=== PATIENT | female | born 1995 | race Two or more races ===

== ENCOUNTER 2017-11-14 16:41 | Emergency (ER) | payer SELFPAY ==
[2017-11-14 17:16] VITALS: BP 108/69
--- NOTE | 2017-11-14 17:36 | ER Document Report ---
ED Skin Rash/Insect Bite/Abscs - General Chief Complaint: Abscess Stated Complaint: BUMP Time Seen by Provider: 11/14/17 17:25 Mode of Arrival: Ambulatory Information source: Patient TRAVEL OUTSIDE OF THE [place] IN LAST 30 DAYS: No - HPI Patient complains to provider of: Tender/swollen area Notes: Patient is here with complaints of tender swollen area in her vaginal area for the last few days. States it seems to be getting bigger and more painful. She denies any fevers. She does report a prior history of having abscess in the past. States that this was approximately 2 years ago. She denies any nausea, vomiting, diarrhea. No abdominal pain. No dysuria or hematuria. No difficulty urinating. Pain is worse with walking and touching the area, nothing seems to make it better. The patient denies any further complaints at this time. - Related Data Allergies/Adverse Reactions: No Known Allergies Allergy (Verified 11/14/17 17:05) Past Medical History - Social History Smoking Status: Unknown if Ever Smoked Family History: Reviewed & Not Pertinent Pulmonary Medical History: Denies: Hx Asthma Neurological Medical History: Reports: Hx Migraine GI Medical History: Denies: Hx Gastritis, Hx Gastroesophageal Reflux Disease Musculoskeltal Medical History: Denies Hx Arthritis, Denies Hx Fibromyalgia, Denies Hx Muscular Dystrophy, Denies Hx Musculoskeletal Trauma Psychiatric Medical History: Denies: Hx Anxiety Past Surgical History: Reports: Hx Oral Surgery - Immunizations Immunizations up to date: Yes Hx Diphtheria, Pertussis, Tetanus Vaccination: Yes - 2011 Review of Systems - Review of Systems -: Yes All other systems reviewed and negative Physical Exam - Vital signs Vitals: Temp Pulse Resp BP Pulse Ox 97.9 F 70 14 108/69 100 11/14/17 17:15 11/14/17 17:15 11/14/17 17:15 11/14/17 17:15 11/14/17 17:15 - Notes Notes: GENERAL: alert, cooperative, nontoxic, no distress. HEAD: normocephalic, atraumatic EYES: conjunctiva pink without discharge, no external redness or swelling. EARS: no external swelling, no external redness NOSE: atraumatic, no external swelling MOUTH/THROAT: mucous membranes moist and pink, posterior pharynx without erythema, swelling, exudate. No trismus or drooling. NECK: soft, supple, full range of motion, no meningismus. CHEST: no distress, lungs clear and equal throughout. No wheezing, rales, rhonchi. CARDIAC: regular rate and rhythm, no murmur, normal capillary refill, normal pulses. No peripheral edema noted. ABDOMEN: Soft, nontender. BACK: full range of motion, no CVA tenderness. EXTREMITIES: full range of motion of all extremities. No redness, no swelling. NEURO: alert and oriented x 3, no focal deficits, full range of motion of all extremities. PYSCH: appropriate mood, affect. Patient is cooperative. SKIN: pink, warm, dry, no rash. : Performed with female accounting consultant at the bedside. Patient is noted to have a 1 cm abscess to the labia minora at the superior aspect on the left side. No significant cellulitis identified. This is tender to palpation. It does not involve the clitoris. It does not involve the urethra. Course - Re-evaluation Re-evalutation: 11/14/17 18:46 Patient is noted to have a small abscess to the left aspect of the labia minora superior aspect with no involvement of the clitoris or the urethra. Was able to drain the abscess here in the emergency department. Patient will be discharged home with a prescription for Bactrim and instructions to apply warm compresses to the sore area. She declined needing anything for pain, she states she will take Tylenol Motrin as needed. Patient is instructed to follow- up if she does not seem to be improving in the next 2 days, sooner for increasing pain, fever, redness, drainage, any further concerns. The patient's emergency department workup and current diagnosis were explained to the patient and or family. Follow-up instructions were provided. Medications if prescribed were discussed. Instructions for when to return to the emergency department including specific worrisome symptoms were discussed with the patient and/or family. - Vital Signs Vital signs: Temp Pulse Resp BP Pulse Ox 97.9 F 70 14 108/69 100 11/14/17 17:15 11/14/17 17:15 11/14/17 17:15 11/14/17 17:15 11/14/17 17:15 Procedures - Incision and Drainage Labial Type: Simple Anesthetic type: 1% Lidocaine Blade size: 11 I&D procedure: Chlorprep applied Incision Method: Incision made by scalpel Amount/type of drainage: small, purulent Notes: 11/14/17 18:47 Loculations broke up with hemostats. Abscess cavity irrigated with normal saline. Patient tolerated procedure well with no immediate complications. Discharge - Discharge Condition: Stable Disposition: HOME, SELF-CARE Instructions: Abscess ([facility]), Post Incision and Drainage, Trimethoprim-Sulfa ( [facility]) Additional Instructions: Take medications as prescribed. Apply warm compresses to sore area. Follow-up if not improving in the next 2 days, sooner for increasing pain, fever, redness , drainage, any further concerns. Prescriptions: Sulfamethoxazole/Trimethoprim [Bactrim Ds Tablet] 1 each PO BID #20 tablet Forms: Smoking Cessation Education Referrals: [facility] [Provider Group] - Follow up as needed
== END 2017-11-14 19:08 | disposition home or self-care (01) ==
LOC: ER 16:41
PROC: 0H9AXZZ Drainage of Inguinal Skin, External Approach (ICD-10-PCS; principal; 2017-11-14)
DX: N76.4 Abscess of vulva (principal); N76.0 Acute vaginitis
CPT/HCPCS: 99283

== ENCOUNTER 2018-09-27 10:13 | Emergency (ER) | payer SELFPAY ==
[2018-09-27] MEDS ORDERED: NORMAL SALINE 1000 ML 1,000 ML IV ONE (10:34)
[2018-09-27] MEDS ORDERED: ONDANSETRON HCL INJ/PF 4 MG/2 ML SDV IV ONE (10:35)
--- NOTE | 2018-09-27 10:35 | ER Document Report ---
ED General - General Chief Complaint: Nausea/Vomiting/Diarrhea Stated Complaint: THROWING UP Time Seen by Provider: 09/27/18 10:28 Primary Care Provider: [facility] [Provider Group] - Follow up as needed [facility]NO [facility]AL MD[facility] - Follow up as needed Notes: Patient is a 23-year-old female that presents to the emergency department for chief complaint of nausea, vomiting, diarrhea. Patient reports that her symptoms started last Thursday and got worse over the weekend, and she feels that she is getting dehydrated, complaining of a mild headache as well so she decided to come to the emergency department. She states that her boyfriend had similar symptoms, but his of since resolved. She is not sure that she is , her first day of last menstrual period was the third of last month. She denies any significant abdominal pain, chest pain, shortness of breath, fevers, chills, night sweats, dysuria or hematuria. She currently rates her headache as a 2 out of 10 describes as an aching sensation. Past Medical History: Denies chronic medical conditions Past Surgical History: [place] tooth extraction Social History: Admits to occasional alcohol use, denies tobacco or drug use. Family History: Reviewed and noncontributory for presenting illness Allergies: Reviewed, see documented allergy list. REVIEW OF SYSTEMS: Other than noted above, the 12 point review of systems was reviewed with the patient and were negative, all pertinent findings are included in the HPI. PHYSICAL EXAMINATION: Vital signs reviewed, nursing noted reviewed. GENERAL: Well-appearing, well-nourished and in no acute distress. HEAD: Atraumatic, normocephalic. EYES: Eyes appear normal, extraocular movements intact, sclera anicteric, conjunctiva are normal. ENT: nares patent, oropharynx clear without exudates. Moist mucous membranes. NECK: Normal range of motion, supple without lymphadenopathy LUNGS: Breath sounds clear to auscultation bilaterally and equal. No wheezes rales or rhonchi. HEART: Regular rate and rhythm without murmurs ABDOMEN: Soft, nontender, normoactive bowel sounds. No rebound, guarding, or rigidity. No masses appreciated. EXTREMITIES: Nontender, good range of motion, no pitting or edema. NEUROLOGICAL: No focal neurological deficits. Moves all extremities spontaneously Motor and sensory grossly intact on exam. PSYCH: Normal mood, normal affect. SKIN: Warm, Dry, normal turgor, no rashes or lesions noted on exposed skin TRAVEL OUTSIDE OF THE [place] IN LAST 30 DAYS: No - Related Data Allergies/Adverse Reactions: No Known Allergies Allergy (Verified 09/27/18 10:14) Past Medical History - Social History Smoking Status: Never Smoker Chew tobacco use (# tins/day): No Frequency of alcohol use: Occasional Drug Abuse: None Family History: Reviewed & Not Pertinent Patient has suicidal ideation: No Patient has homicidal ideation: No Pulmonary Medical History: Denies: Hx Asthma Neurological Medical History: Reports: Hx Migraine Renal/ Medical History: Denies: Hx Peritoneal Dialysis GI Medical History: Denies: Hx Gastritis, Hx Gastroesophageal Reflux Disease Musculoskeletal Medical History: Denies Hx Arthritis, Denies Hx Fibromyalgia, Denies Hx Muscular Dystrophy, Denies Hx Musculoskeletal Trauma Psychiatric Medical History: Denies: Hx Anxiety Past Surgical History: Reports: Hx Oral Surgery - Immunizations Immunizations up to date: Yes Hx Diphtheria, Pertussis, Tetanus Vaccination: Yes - 2011 Physical Exam - Vital signs Vitals: Temp Pulse Resp BP Pulse Ox 99.0 F 80 16 105/69 99 09/27/18 10:24 09/27/18 10:24 09/27/18 10:24 09/27/18 10:24 09/27/18 10:24 Course - Re-evaluation Re-evalutation: Patient seen and examined vital signs reviewed. Laboratory data and imaging were ordered as appropriate for the patient's presenting symptoms and complaint, with consideration of any critical or life threatening conditions that may be associated with their obtained history and exam as noted above. Patient was treated with IV fluids, dose of Zofran 4 mg IV Results were reviewed when available and demonstrated urinalysis was essentially unremarkable, hCG in the urine was positive, because the patient was complaining of some vaginal spotting, I ordered ultrasound, which confirmed an IUP, hCG was ordered as well, consistent with the patient stage of . The patient was re-evaluated and was stable and improved Evaluation was most consistent with , nausea and vomiting, advised to follow-up with FABRIC AND ACCESSORIES ESTIMATOR. Results were discussed with the patient at this point, after careful consideration I feel that that patient can be discharged from the emergency department, the patient was educated treatments and reasons to return to the e mergency department based on their presumed diagnosis as noted above, they were advised to followup with a primary care physician in 2-3 days. Patient was agreeable to plan of care. *Note is created using voice recognition software and may contain spelling, syntax or grammatical errors. Laboratory 09/27/18 09/27/18 09/27/18 11:39 11:39 14:24 Beta HCG, Quant Total Beta HCG Urine Color YELLOW Urine Appearance SLIGHTLY-CLOUDY Urine pH 5.0 Ur Specific [place] 1.027 Urine Protein 30 H Urine Glucose (UA) NEGATIVE Urine Ketones 80 H Urine Blood LARGE H Urine Nitrite NEGATIVE Urine Bilirubin NEGATIVE Urine Urobilinogen 4.0 H Ur Leukocyte Esterase NEGATIVE Urine WBC (Auto) 3 Urine RBC (Auto) 2 U Hyaline Cast (Auto) 1 Urine Bacteria (Auto) SPINNING FRAME FIXER Urine Red Cell Clumps SPINNING FRAME FIXER Urine WBC Clumps SPINNING FRAME FIXER Squamous Epi Cells Auto 1 U Non-Squamous Epis Auto SPINNING FRAME FIXER Calcium Carbonate Cryst SPINNING FRAME FIXER Calcium Phosphate Cryst SPINNING FRAME FIXER Calcium Oxalate Cr Auto SPINNING FRAME FIXER Leucine Crystals SPINNING FRAME FIXER Cystine Crystals SPINNING FRAME FIXER Uric Acid Cryst (Auto) SPINNING FRAME FIXER Triple Phos Cryst (Auto) SPINNING FRAME FIXER Tyrosine Crystals SPINNING FRAME FIXER Amorphous Sediment Auto SPINNING FRAME FIXER Cellular Casts SPINNING FRAME FIXER Epithelial Casts (Auto) SPINNING FRAME FIXER Fatty Casts SPINNING FRAME FIXER Granular Casts (Auto) SPINNING FRAME FIXER Waxy Casts (Auto) SPINNING FRAME FIXER Broad Casts SPINNING FRAME FIXER RBC Casts (Auto) SPINNING FRAME FIXER WBC Casts (Auto) SPINNING FRAME FIXER Urine Mucus (Auto) MANY U Trichomonas (Auto) SPINNING FRAME FIXER Ur Yeast w Hyphae SPINNING FRAME FIXER Urine Yeast (Budding) SPINNING FRAME FIXER Urine Ascorbic Acid NEGATIVE Urine HCG, Qual POSITIVE H Blood Type O POSITIVE Rhogam Indicated RHOGAM NOT INDICATED 09/27/18 14:24 Beta HCG, Quant 60583.00 H Total Beta HCG POSITIVE Urine Color Urine Appearance Urine pH Ur Specific [place] Urine Protein Urine Glucose (UA) Urine Ketones Urine Blood Urine Nitrite Urine Bilirubin Urine Urobilinogen Ur Leukocyte Esterase Urine WBC (Auto) Urine RBC (Auto) U Hyaline Cast (Auto) Urine Bacteria (Auto) Urine Red Cell Clumps Urine WBC Clumps Squamous Epi Cells Auto U Non-Squamous Epis Auto Calcium Carbonate Cryst Calcium Phosphate Cryst Calcium Oxalate Cr Auto Leucine Crystals Cystine Crystals Uric Acid Cryst (Auto) Triple Phos Cryst (Auto) Tyrosine Crystals Amorphous Sediment Auto Cellular Casts Epithelial Casts (Auto) Fatty Casts Granular Casts (Auto) Waxy Casts (Auto) Broad Casts RBC Casts (Auto) WBC Casts (Auto) Urine Mucus (Auto) U Trichomonas (Auto) Ur Yeast w Hyphae Urine Yeast (Budding) Urine Ascorbic Acid Urine HCG, Qual Blood Type Rhogam Indicated Obstetrics Ultrasound 09/27/18 13:20 IMPRESSION: LIVING INTRAUTERINE . EGA 5 weeks 6 days. Trimester of : First - 0 to 13 weeks. - Vital Signs Vital signs: Temp Pulse Resp BP Pulse Ox 98.6 F 77 18 119/81 100 09/27/18 16:51 09/27/18 16:51 09/27/18 16:51 09/27/18 16:51 09/27/18 16:51 - Laboratory Laboratory results interpreted by me: 09/27/18 09/27/18 09/27/18 11:39 11:39 14:24 Beta HCG, Quant 98765.00 H Urine Protein 30 H Urine Ketones 80 H Urine Blood LARGE H Urine Urobilinogen 4.0 H Urine HCG, Qual POSITIVE H Discharge - Discharge Clinical Impression: Nausea & vomiting Qualifiers: Vomiting type: unspecified Vomiting Intractability: non-intractable Qualified Code(s): R11.2 - Nausea with vomiting, unspecified Qualifiers: Weeks of gestation: less than 8 weeks Qualified Code(s): Z3A.01 - Less than 8 weeks gestation of Condition: Stable Disposition: HOME, SELF-CARE Instructions: ([facility]), Vomiting ([facility]) Additional Instructions: Please follow-up with women's health, or the health department, you should avoid alcohol going forward, you should start taking a vitamin on a daily basis, avoid cigarette smoke, even if it secondhand smoke. Referrals: [facility] [Provider Group] - [facility] as [facility] - Follow up as needed
[2018-09-27 11:56] LABS: APPEARANCE,URINE SLIGHTLY-CLOUDY; BILIRUBIN,URINE NEGATIVE (NEGATIVE); GLUCOSE, URINE NEGATIVE (NEGATIVE); KETONES,URINE 80 mg/dL (NEGATIVE); LEUKOCYTE ESTERASE,URINE NEGATIVE (NEGATIVE); NITRITE,URINE NEGATIVE (NEGATIVE); PROTEIN,URINE 30 mg/dL (NEGATIVE); URINE SPECIFIC GRAVITY 1.027
[2018-09-27 11:57] LABS: COLOR,URINE YELLOW
--- NOTE | 2018-09-27 15:48 | RADIOLOGY REPORT (SQ) ---
EXAM DESCRIPTION: U/S OB TRANSVAGINAL W/O DOP COMPLETED DATE/TIME: 09/27/2018 3:20 pm REASON FOR STUDY: vaginal bleeding, + hcg COMPARISON: None. TECHNIQUE: Transvaginal static and realtime grayscale images acquired of the pelvis. Additional maribeth cted spectral and color Doppler images recorded. All images stored on PACs. bHCG: Pending CLINICAL DATES: LMP 08/12/2018. 6 weeks 4 days. LIMITATIONS: None. FINDINGS: FETUS: Single Living intrauterine . ULTRASOUND EGA: 5 weeks 6 days ULTRASOUND LIBERTY: 05/24/2019 EFW: Not applicable less than 20 weeks. CRL: 0.25 cm FHR: 104 beats per minute. SURVEY: Too early to assess. AMNIOTIC FLUID: Adequate amount. PLACENTA: Not yet developed due to early gestation. SUBCHORIONIC BLEED: No SIZE OF BLEED: Not applicable. UTERUS: No masses. No anomalies. CERVICAL LENGTH: 3.4 cm. Closed. RIGHT ADNEXA: Normal ovary with normal vascular flow. 2.8 x 2.4 x 1.6 cm. No adnexal free fluid. No adnexal masses. LEFT ADNEXA: Normal ovary with normal vascular flow. 3.8 x 2.2 x 2.6 cm. No adnexal free fluid. No adnexal masses. FREE FLUID: None. OTHER: No other significant finding. IMPRESSION: LIVING INTRAUTERINE . EGA 5 weeks 6 days. Trimester of : First - 0 to 13 weeks. TECHNICAL DOCUMENTATION: JOB ID: [id number] [employer]- All Rights Reserved rev Reading location - IP/workstation name: [email or web address]
[2018-09-27 17:00] VITALS: BP 119/81
== END 2018-09-27 16:57 | disposition home or self-care (01) ==
LOC: ER 10:13
DX: O21.9 Vomiting of pregnancy, unspecified (principal); O26.891 Other specified pregnancy related conditions, first trimester; R19.7 Diarrhea, unspecified; O26.851 Spotting complicating pregnancy, first trimester; Z3A.01 Less than 8 weeks gestation of pregnancy
CPT/HCPCS: 99284; 96361; 96374; 86900; 86901; 36415; 87086; 84702; 81025; 81001; 76817; J2405; J7030

== ENCOUNTER 2018-11-14 08:21 | Emergency (ER) | payer MEDICAID ==
[2018-11-14] MEDS ORDERED: DIPHENHYDRAMINE HCL 50 MG/ML VIAL IV ONE (09:27)
[2018-11-14] MEDS ORDERED: ACETAMINOPHEN 325 MG TABLET PO ONE (09:28)
[2018-11-14] MEDS ORDERED: NORMAL SALINE 1000 ML 1,000 ML IV ONE (09:28)
--- NOTE | 2018-11-14 09:33 | ER Document Report ---
ED Headache - General Chief Complaint: Headache Stated Complaint: HEADACHE Time Seen by Provider: 11/14/18 09:16 Mode of Arrival: Ambulatory Information source: Patient Notes: Patient is a 23-year-old female comes to the emergency room today complaining of migraine headache times 1 week. Patient has a history of migraine headaches and states she usually gets 1 or 2 a week but takes Tylenol and it goes away. She is been recently diagnosed as being on September 10 and was found to be here at this hospital. This is her first and since the started she has had vomiting along with these headaches which have been increasing. These headaches and the presentation are similar to all her past history of headaches is just not going away with the Tylenol. States the headache is frontal and causes photophobia. Also causes nausea and vomiting. She denies any abdominal pain cramping or bleeding. She denies smoking she works currently as a information clerk cashier at the [employer]. She denies any other medical history. TRAVEL OUTSIDE OF THE [place] IN LAST 30 DAYS: No - HPI Patient complains to provider of: Headache, "Migraine" Patient reports: Frequent migraines, Hx chronic headaches Onset: Last week Onset was: Abrupt - Works for [employer] final viewing over 5 Timing: Worse Quality of pain: Achy, Sharp, Throbbing Severity: Severe Pain Level: 5 Preceding symptoms: Other - Photophobia Associated symptoms: Nausea/vomiting. denies: Motor/sensory loss to leg, Neck pain Exacerbated by: Light, Noise, Movement Similar symptoms previously: Yes Recently seen / treated by doctor: No - Related Data Allergies/Adverse Reactions: No Known Allergies Allergy (Verified 09/27/18 10:14) Past Medical History - General Information source: Patient - Social History Smoking Status: Never Smoker Chew tobacco use (# tins/day): No Frequency of alcohol use: None Drug Abuse: None Lives with: Family Family History: Reviewed & Not Pertinent Patient has suicidal ideation: No Patient has homicidal ideation: No Pulmonary Medical History: Denies: Hx Asthma Neurological Medical History: Reports: Hx Migraine Renal/ Medical History: Denies: Hx Peritoneal Dialysis GI Medical History: Denies: Hx Gastritis, Hx Gastroesophageal Reflux Disease Musculoskeletal Medical History: Denies Hx Arthritis, Denies Hx Fibromyalgia, Denies Hx Muscular Dystrophy, Denies Hx Musculoskeletal Trauma Psychiatric Medical History: Denies: Hx Anxiety Past Surgical History: Reports: Hx Oral Surgery - wisdom teeth removed - Immunizations Immunizations up to date: Yes Hx Diphtheria, Pertussis, Tetanus Vaccination: Yes - 2011 Review of Systems - Review of Systems Constitutional: No symptoms reported EENT: No symptoms reported Cardiovascular: No symptoms reported Respiratory: No symptoms reported Gastrointestinal: No symptoms reported Genitourinary: No symptoms reported Female Genitourinary: No symptoms reported, Musculoskeletal: No symptoms reported Skin: No symptoms reported Hematologic/Lymphatic: No symptoms reported Neurological/Psychological: No symptoms reported, Headaches -: Yes All other systems reviewed and negative Physical Exam - Vital signs Vitals: Temp Pulse Resp BP Pulse Ox 98.0 F 90 16 109/64 99 11/14/18 08:26 11/14/18 08:26 11/14/18 08:26 11/14/18 08:26 11/14/18 08:26 Interpretation: Normal - Notes Notes: PHYSICAL EXAMINATION: GENERAL: Well-appearing, well-nourished and in no acute distress. But uncomfortable appearing. HEAD: Atraumatic, normocephalic. EYES: Pupils equal round and reactive to light, extraocular movements intact, conjunctiva are normal. ENT: Nares patent, oropharynx clear without exudates. Moist mucous membranes. NECK: Normal range of motion, supple without lymphadenopathy LUNGS: Breath sounds clear to auscultation bilaterally and equal. No wheezes rales or rhonchi. HEART: Regular rate and rhythm without murmurs ABDOMEN: Soft, nontender, nondistended abdomen. No guarding, no rebound. No masses appreciated. Female : deferred Musculoskeletal: Normal range of motion, no pitting or edema. No cyanosis. NEUROLOGICAL: Cranial nerves grossly intact. Normal speech, normal gait. Normal sensory, motor exams PSYCH: Normal mood, normal affect. SKIN: Warm, Dry, normal turgor, no rashes or lesions noted. Course - Re-evaluation Re-evalutation: 11/14/18 09:35 Patient has a history of migraine headaches normally responding to Tylenol however since her starting around September she is been having increasing migraine headaches that are more difficult to handle. This wound is been ongoing on for a week and she is attempted Tylenol multiple times but her pain is getting worse her headache is similar to all of her other ones in the past intensity is approximately the same issues not responding to medication. At this time we will try a liter of fluid some Benadryl and Tylenol p.o. since last though she took was late yesterday evening around 11 PM. We will continue to monitor and adjust treatment as needed. Patient received a liter of fluids and the Benadryl and her pain came down to a 2 out of 10 she slept most of the morning and feels better. We will discharge patient home with the intent that she can take Benadryl every 6 hours as she needed for relief of the headache. She can go home and sleep. 11/14/18 12:09 - Vital Signs Vital signs: Temp Pulse Resp BP Pulse Ox 98.0 F 90 16 109/64 99 11/14/18 08:26 11/14/18 08:26 11/14/18 08:26 11/14/18 08:26 11/14/18 08:26 Discharge - Discharge Clinical Impression: Migraine headache Qualifiers: Migraine type: without aura Status migrainosus presence: with status migrainosus Intractability: not intractable Qualified Code(s): G43.001 - Migraine without aura, not intractable, with status migrainosus Qualifiers: Weeks of gestation: 12 weeks Qualified Code(s): Z3A.12 - 12 weeks gestation of Condition: Good Disposition: HOME, SELF-CARE Instructions: Antinausea Medication ([facility]), Use of Diphenhydramine, Headache ([facility]), ([facility]) Additional Instructions: Home and rest. Continue with fluids as much as possible for the next 24 hours. Advance her diet as tolerated. I am giving you something for your nausea which may also will subside with your . Continue her Tylenol every 8 hours as needed for the headache. Return to ER if you have any concerns or problems. Highly suggest follow-up with a neurologist at your convenience. 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 Continue with your vitamins. Prescriptions: Promethazine HCl [Phenergan 25 mg Tablet] 1 - 2 tab PO Q6H PRN #20 tablet PRN Reason:
[2018-11-14 12:36] VITALS: BP 103/61
== END 2018-11-14 12:57 | disposition home or self-care (01) ==
LOC: ER 08:21
DX: G43.001 Migraine without aura, not intractable, with status migrainosus (principal); R11.2 Nausea with vomiting, unspecified; H53.149 Visual discomfort, unspecified
CPT/HCPCS: 99283; 96361; 96374; J3490; J1200; J7030

== ENCOUNTER 2019-02-13 19:26 | Outpatient (CLI) | payer MEDICAID ==
[2019-02-13 20:53] LABS: AMORPHOUS SEDIMENT,URINE TRACE /HPF
[2019-02-13 20:56] LABS: APPEARANCE,URINE CLOUDY; BILIRUBIN,URINE NEGATIVE (NEGATIVE); COLOR,URINE YELLOW; GLUCOSE, URINE NEGATIVE (NEGATIVE); KETONES,URINE NEGATIVE (NEGATIVE); LEUKOCYTE ESTERASE,URINE NEGATIVE (NEGATIVE); NITRITE,URINE NEGATIVE (NEGATIVE); PROTEIN,URINE NEGATIVE (NEGATIVE); URINE SPECIFIC GRAVITY 1.017; UROBILINOGEN,URINE NEGATIVE mg/dL (<2.0)
[2019-02-13 20:57] LABS: URINE AMPHETAMINES SCREEN NEGATIVE; URINE BARBITURATES SCREEN NEGATIVE; URINE BENZODIAZEPINES SCREEN NEGATIVE; URINE COCAINE SCREEN NEGATIVE; URINE MARIJUANA (THC) SCREEN NEGATIVE; URINE METHADONE SCREEN NEGATIVE; URINE PHENCYCLIDINE SCREEN NEGATIVE
[2019-02-13] MEDS ORDERED: HYDROXYZINE PAMOATE 50 MG CAPSULE PO ONE (21:08)
[2019-02-13] MEDS ORDERED: HYDROXYZINE PAMOATE 50 MG CAPSULE ONE (21:10)
--- NOTE | 2019-02-13 22:25 | RADIOLOGY REPORT (SQ) ---
EXAM DESCRIPTION: RadLex: US LIMITED CLINICAL HISTORY: 24 years Female; cramping LMP 08/12/2018 (26 weeks 3 days) TECHNIQUE: Transabdominal obstetrical ultrasound was performed. COMPARISON: 09/27/2018 FINDINGS: Number of fetuses: Single position: Vertex BPD: 6.63 cm, 26 weeks 5 days HC: 24.37 cm, 26 weeks 3 days AC: 22.05 cm, 26 weeks 3 days FL: 4.83 cm, 26 weeks 1 day EFW: 931 g (2 lbs. 1 oz.), 47% HR: 137 bpm Anatomy: Grossly normal on this limited exam. Amniotic fluid: TRAVIS 9.6 cm, adequate Cervix: 3.7 cm Placenta: Posterior fundal. No previa. IMPRESSION: 1. Single viable IUP 2. No acute findings. 3. EGA 26 weeks 3 days, EDC 05/19/2019
== END 2019-02-13 22:35 | disposition home or self-care (01) ==
LOC: LC 19:26
PROVIDERS: ATTEND Obstetrics & Gynecology
PROC: 4A1HXCZ Monitoring of Products of Conception, Cardiac Rate, External Approach (ICD-10-PCS; principal; 2019-02-13)
DX: O26.892 Other specified pregnancy related conditions, second trimester (principal); E86.0 Dehydration; Z3A.26 26 weeks gestation of pregnancy
CPT/HCPCS: 81001; 80307; 76815; 59899; J3490

== ENCOUNTER 2019-04-02 17:33 | Outpatient (CLI) | payer MEDICAID ==
[2019-04-02 18:21] LABS: APPEARANCE,URINE CLEAR; BILIRUBIN,URINE NEGATIVE (NEGATIVE); COLOR,URINE STRAW; GLUCOSE, URINE 50 mg/dL (NEGATIVE); KETONES,URINE NEGATIVE (NEGATIVE); LEUKOCYTE ESTERASE,URINE NEGATIVE (NEGATIVE); NITRITE,URINE NEGATIVE (NEGATIVE); PROTEIN,URINE NEGATIVE (NEGATIVE); URINE SPECIFIC GRAVITY 1.005; UROBILINOGEN,URINE NEGATIVE mg/dL (<2.0)
[2019-04-02 18:35] LABS: URINE AMPHETAMINES SCREEN NEGATIVE; URINE BARBITURATES SCREEN NEGATIVE; URINE BENZODIAZEPINES SCREEN NEGATIVE; URINE COCAINE SCREEN NEGATIVE; URINE MARIJUANA (THC) SCREEN NEGATIVE; URINE METHADONE SCREEN NEGATIVE; URINE PHENCYCLIDINE SCREEN NEGATIVE
--- NOTE | 2019-04-02 18:37 | Non Stress Test Report ---
Non Stress Test Datetime Report Generated by CPN: 04/02/2019 18:36 DEMOGRAPHIC EGA NST: 33.2 INDICATION Indication for Study: Ordered by Provider MONITORING Monitor Explained: Monitor Explained; Test Explained; Patient Verbalized Understanding Time on Monitor: 04/02/2019 17:47 Time off Monitor: 04/02/2019 18:21 NST Duration: 34 NST INTERVENTIONS NST Interventions: None Physician Notified NST: Dr Mendoza-Fitz BABY A: [id number] BABY A Movement : Present Contraction Frequency : none FHR Baseline : 135 Accelerations : 15X15 Decelerations : None Variability : Moderate 6-25bpm NST Review: Meets Criteria for Reactive NST NST Review and Verified By : Messi Badillo RN NST Results: Reactive NST REPORT Report Trigger: Send Report
== END 2019-04-02 18:31 | disposition home or self-care (01) ==
LOC: LC 17:33
PROVIDERS: ATTEND Obstetrics & Gynecology
PROC: 4A1HXCZ Monitoring of Products of Conception, Cardiac Rate, External Approach (ICD-10-PCS; principal; 2019-04-02)
DX: O46.93 Antepartum hemorrhage, unspecified, third trimester (principal); Z3A.33 33 weeks gestation of pregnancy
CPT/HCPCS: 59025; 80307; 81001

== ENCOUNTER 2019-05-24 10:00 | Inpatient (IN) | payer MEDICAID ==
--- NOTE | 2019-05-24 11:07 | Non Stress Test Report ---
Non Stress Test Datetime Report Generated by CPN: 05/24/2019 11:06 DEMOGRAPHIC EGA NST: 40.5 INDICATION Indication for Study: Ordered by Provider Indication for Study (NST) Other: LABOR CHECK MONITORING Monitor Explained: Monitor Explained; Test Explained; Patient Verbalized Understanding Time on Monitor: 05/24/2019 10:18 Time on Monitor: 05/24/2019 10:17 Time off Monitor: 05/24/2019 10:47 NST Duration: 29 NST INTERVENTIONS NST Interventions: PO Hydration Physician Notified NST: J. Aparicio, CNM BABY A: [id number] BABY A Movement : Present Contraction Frequency : Occasional FHR Baseline : 135 Accelerations : 15X15 Decelerations : Variable Variability : Moderate 6-25bpm NST Review: Meets Criteria for Reactive NST NST Review and Verified By : ALTA BARRIENTOS Results: Reactive NST REPORT Report Trigger: Send Report
[2019-05-24 11:10] LABS: APPEARANCE,URINE SLIGHTLY-CLOUDY; BILIRUBIN,URINE NEGATIVE (NEGATIVE); COLOR,URINE YELLOW; GLUCOSE, URINE NEGATIVE (NEGATIVE); KETONES,URINE NEGATIVE (NEGATIVE); LEUKOCYTE ESTERASE,URINE MODERATE (NEGATIVE); NITRITE,URINE NEGATIVE (NEGATIVE); PROTEIN,URINE 30 mg/dL (NEGATIVE); URINE SPECIFIC GRAVITY 1.014; UROBILINOGEN,URINE NEGATIVE mg/dL (<2.0)
[2019-05-24 11:54] LABS: URINE AMPHETAMINES SCREEN NEGATIVE; URINE BARBITURATES SCREEN NEGATIVE; URINE BENZODIAZEPINES SCREEN NEGATIVE; URINE COCAINE SCREEN NEGATIVE; URINE MARIJUANA (THC) SCREEN NEGATIVE; URINE METHADONE SCREEN NEGATIVE; URINE PHENCYCLIDINE SCREEN NEGATIVE
[2019-05-24] MEDS ORDERED: OXYTOCIN/NORMAL SALINE 20 UNIT/1,000 ML RTUINJ IV PRN ×2 (12:37→20:48)
[2019-05-24] MEDS ORDERED: RINGERS SOLUTION,LACTATED 1,000 ML IV ONE (12:37)
--- NOTE | 2019-05-24 12:37 | Admission Physical ---
Datetime Report Generated by CPN: 05/24/2019 12:37 CURRENT ADMISSION Hx Assessment: The History has been Updated Chief Complaint: Uterine Contractions Indication for Induction: Not Applicable Admit Impression : Term, Intrauterine ; Active Labor; Intact Membranes Admit Plan: Admit to Unit; Initiate Labor Protocol ALLERGIES Medication Allergies: No Medication Allergies: No Known Allergies (04/02/2019) Latex: No Latex Allergies Food Allergies: No Environmental Allergies: No OBSTETRICAL HISTORY EDC: 05/19/2019 00:00 : 1 Para: 0 Term: 0 : 0 SAB: 0 IAB: 0 Ectopic: 0 Livin Cesareans: 0 VBACs: 0 Multiple Births: 0 SEE RECORDS Alcohol: No Marijuana : No Cocaine: No Other Illicit Drugs: No Cigarettes: Never Smoker. [id number] PHYSICAL EXAM General: Normal HEENT: Normal Neurologic: Normal Thyroid: Normal Heart: Normal Lungs: Normal Breast: Deferred Back: Normal Abdomen: Normal Genitourinary Exam: Normal Extremities: Normal DTRs: Normal Pelvic Type: Adequate Physical Exam Comments: G1 admitted to LD in labor, + Chlamydia 4-17= GRACIELA neg 02-02-19 Rt breast lump, Dr. Thorne, bx B9, surgery pp Hx migraines High weight gain GBS neg Vital Signs: Reviewed FETUS A EGA: 40.5 Monitoring: External US Variability: Moderate 6-25bpm Accelerations: 15X15 FHR Category: Category I Admit Comment: Admitted to in labor, does not plan on epidural, Cat 1 strip, irreg uc's, Plan: ROM anticipate GBS neg Family at BS PLANS FOR LABOR AND DELIVERY Labor and Delivery: None Pain Management: Natural; Medications Feeding Preference: Breast Benefit of Breast Feed Discussed: Yes Circumcision: N/A INFORMED CONSENT Assignment: Tona Ag MD Signature: with User ID: [email or web address] : with User ID: [email or web address]
[2019-05-24] MEDS ORDERED: OXYTOCIN 10 UNIT/ML VIAL ONE (12:58)
[2019-05-24] MEDS ORDERED: MISOPROSTOL 0.2 MG TABLET ONE (12:58)
[2019-05-24] MEDS ORDERED: OXYTOCIN/NORMAL SALINE 20 UNIT/1,000 ML RTUINJ ONE (12:59)
[2019-05-24] MEDS ORDERED: LIDOCAINE 1% INJ-PF (10 MG/ML) 30 ML SDV ONE (12:59)
[2019-05-24 13:15] LABS: ABSOLUTE EOSINOPHILS # (AUTO) 0.1 10^3/uL (0.0-0.6); ABSOLUTE LYMPHOCYTES (AUTO) 1.7 10^3/uL (0.5-4.7); ABSOLUTE MONOCYTES (AUTO) 0.4 10^3/uL (0.1-1.4); ABSOLUTE NEUT (AUTO) 8.6 10^3/uL (1.7-8.2); BASOPHILS % (AUTO) 0.3 % (0-2); EOSINOPHILS % (AUTO) 0.9 % (0-6); HEMATOCRIT 39.6 % (36.0-47.0); HEMOGLOBIN 13.4 g/dL (12.0-15.5); LYMPHOCYTES % (AUTO) 15.9 % (13-45); MEAN CORPUSCULAR HEMOGLOBIN 29.6 pg (27.0-33.4); MEAN CORPUSCULAR HGB CONC 33.8 g/dL (32.0-36.0); MEAN CORPUSCULAR VOLUME 88 fl (80-97); MONOCYTES % (AUTO) 4.1 % (3-13); PLATELET COUNT 202 10^3/uL (150-450); RED BLOOD COUNT 4.52 10^6/uL (3.72-5.28); RED CELL DISTRIBUTION WIDTH 13.4 % (11.5-14.0); SEGMENTED NEUTROPHILS % (AUTO) 78.8 % (42-78); TOTAL CELLS COUNTED % (AUTO) 100 %; WHITE BLOOD COUNT 10.9 10^3/uL (4.0-10.5)
[2019-05-24] MEDS: RINGERS SOLUTION,LACTATED 1,000 ML IV PRN ×2 (13:16→18:20)
[2019-05-24] MEDS ORDERED: NALBUPHINE HCL INJ 10 MG/1 ML AMPULE ONE (16:18)
[2019-05-24] MEDS ORDERED: NALBUPHINE HCL INJ 10 MG/1 ML AMPULE INJ ONE (16:31)
[2019-05-24] MEDS ORDERED: FENTANYL/BUPIVACAINE/NS/PF 300 MCG/150 ML RTUINJ EPI ONE (16:35)
[2019-05-24] MEDS ORDERED: EPHEDRINE SULFATE INJ 50 MG/1 ML AMPULE ONE (16:35)
[2019-05-24] MEDS ORDERED: BUPIVACAINE HCL 0.25 % INJ/PF (2.5 MG/1 ML) 30 ML VIAL ONE (16:35)
[2019-05-24] MEDS ORDERED: ACETAMINOPHEN WITH CODEINE #3 TABLET PO PRN ×2 (20:48)
[2019-05-24] MEDS ORDERED: ZOLPIDEM TARTRATE 5 MG TABLET PO PRN (20:48)
[2019-05-24] MEDS ORDERED: DIPH/PERTUSS(ACELL)/TETANUS VAC/PF 0.5 ML SYR (>=10YO) IM PRN (20:48)
[2019-05-24] MEDS ORDERED: DIBUCAINE 1% OINTMENT 56 GM TP PRN (20:48)
[2019-05-24] MEDS ORDERED: BENZOCAINE/MENTHOL AEROSOL SPRAY 56 ML TOP PRN (20:48)
--- NOTE | 2019-05-24 21:03 | Delivery Summary ---
Del Sum A-C Datetime Report Generated by CPN: 05/24/2019 21:03 DELIVERY PERSONNEL DELIVERY PERSONNEL: [id number] Delivery Doctor:: Tona Ag MD Labor and Delivery Nurse:: Elsie Muir RNsoft work cigar machine operator Nurse:: Sussy Alarcon RN Tin Flipper/HEADING MAKER: Elinarafy Velarde, ST MATERNAL INFORMATION Delivery Anesthesia: Epidural Medications After Delivery: Pitocin Drip 20 Units/1000ml NSS Maternal Complications: None Provider Comments: of a viable female @ 1941 w/ an SANDRA w/ tight nuchal cord x 2 presentation; APGARS 8, 9; allegra 2nd deg periurethral and 2nd deg midline vag lac LABOR SUMMARY EDC: 05/19/2019 00:00 No. Babies in Womb: 1 Attempted: No Labor Anesthesia: Epidural LABOR INFORMATION Reason for Induction: Not Applicable Onset of Labor: 05/24/2019 11:42 Complete Dilatation: 05/24/2019 19:11 Oxytocin: Augmentation Group B Beta Strep: Negative Antibiotics # of Doses: 0 Antibiotics Time of Last Dose: N/A Name of Antibiotic Given: N/A Steroids Given: None Reason Steroids Not Administered: Not Applicable MEMBRANES Membranes Rupture Method: Spontaneous Rupture of Membranes: 05/24/2019 15:10 Length of Rupture (hr): 4.55 Amniotic Fluid Color: Clear Amniotic Fluid Amount: Moderate Amniotic Fluid Odor: Normal STAGES OF LABOR Stage 1 hr: 7 Stage 1 min: 29 Stage 2 hr: 0 Stage 2 min: 32 Stage 3 hr: 0 Stage 3 min: 37 Total Time in Labor hr: 8 Total Time in Labor min: 38 VAGINAL DELIVERY Episiotomy: None Laceration #1: Periurethral Laceration Extension #1: Second Degree Laceration #2: Periurethral Laceration Extension #2: Second Degree Laceration #3: Vaginal Laceration Extension #3: Second Degree Laceration Repair: Yes Laceration Repair Note: Bilateral 2nd deg periurethral lacs repaired w/3-0 chromic; 2nd deg midline vag lac repaired w/2-0 vicryl Sponge Count Correct: Yes Sharps Count Correct: Yes CSECTION DELIVERY Primary Indication: N/A Secondary Indication: N/A CSection Incidence: N/A Labor: N/A Elective: N/A CSection Incision: N/A BABY A INFORMATION Infant Delivery Date/Time: 05/24/2019 19:43 Method of Delivery: Vaginal Born in Route : No : N/A Forceps: N/A Vacuum Extraction: N/A Shoulder Dystocia : No PRESENTATION/POSITION BABY A Presentation: Cephalic Cephalic Presentation: Vertex Vertex Position: Right Occipital Anterior Breech Presentation: N/A PLACENTA INFORMATION BABY A Placenta Delivery Time : 05/24/2019 20:20 Placenta Method of Delivery: Spontaneous Placenta Status: Delivered SCORES BABY A Heart Rate 1 min: >100 bpm Resp Effort 1 min: Good Cry Reflex Irritability 1 min: Cough or Sneeze or Pulls Away Muscle Tone 1 min: Active Motion Color 1 min: Blue/Pale SCORE 1 MIN: 8 Heart Rate 5 min: >100 bpm Resp Effort 5 min: Good Cry Reflex Irritability 5 min: Cough or Sneeze or Pulls Away Muscle Tone 5 min: Active Motion Color 5 min: Body [place], Extremities Blue SCORE 5 MIN: 9 INFORMATION BABY A Gestational Age at Delivery: 40.5 Gestational Status: Full Term- 39- 40.6 Weeks Outcome : Liveborn Condition : Stable Infant Sex: Female IDENTIFICATION BABY A Infant Verification Date/Time: 05/24/2019 19:53 ID Band Number: [id number] Mother's Name Verified: Yes Infant RN Verifying : Rebecca AlarconALTA Additional Verifying Personnel: Nilesh Cotter, US WEIGHT/LENGTH BABY A Birthweight (gm): 3473 Weight (lb): 7 Weight (oz): 11 Infant Length (in): 20.00 Infant Length (cm): 50.80 CORD INFORMATION BABY A No. Cord Vessels: 3 Nuchal Cord : Around Neck x2, Tight Cord Blood Taken: Yes-For Eval (Mom's Blood Type - or O+) ASSESSMENT BABY A Skin to Skin: Yes BABY B INFORMATION : N/A SIGNATURES Signature: with User ID: [email or web address]
[2019-05-24] MEDS ORDERED: IBUPROFEN 800 MG TABLET ONE (21:25)
[2019-05-24] MEDS: IBUPROFEN 800 MG TABLET PO SCH (21:26)
[2019-05-25] MEDS: IBUPROFEN 800 MG TABLET PO SCH ×3 (05:47→22:33)
[2019-05-25 08:54] LABS: HEMATOCRIT 35.3 % (36.0-47.0); HEMOGLOBIN 11.8 g/dL (12.0-15.5); MEAN CORPUSCULAR HGB CONC 33.3 g/dL (32.0-36.0); MEAN CORPUSCULAR VOLUME 87 fl (80-97); PLATELET COUNT 202 10^3/uL (150-450); RED BLOOD COUNT 4.06 10^6/uL (3.72-5.28); RED CELL DISTRIBUTION WIDTH 13.5 % (11.5-14.0); WHITE BLOOD COUNT 15.5 10^3/uL (4.0-10.5)
[2019-05-25] MEDS: SENNOSIDES/DOCUSATE 8.6-50 MG 1 EACH TABLET PO SCH (10:23)
[2019-05-25] MEDS: PRENATAL VITAMIN W DHA CAPSULE PO SCH (10:23)
[2019-05-25] MEDS: FERROUS SULFATE 325 MG TABLET PO SCH ×2 (10:23→17:58)
[2019-05-25] MEDS: DOCUSATE SODIUM 100 MG CAPSULE PO SCH ×2 (10:23→17:59)
--- NOTE | 2019-05-25 10:58 | PDOC PROGRESS REPORT ---
Subjective-OB Progress Note for:: 05/25/19 Subjective: 24yo G1 now P1 s/p ppd1. Ambulating, and voiding without difficulty. Reports pain well controlled with medication. Denies any concerns today Physical Exam (OB) Vital Signs: Temp Pulse Resp BP Pulse Ox 98.6 F 89 16 115/71 99 05/25/19 08:35 05/25/19 08:35 05/25/19 08:35 05/25/19 08:35 05/25/19 08:35 Intake & Output 05/24/19 05/25/19 05/26/19 06:59 06:59 06:59 Intake Total 873 1000 Balance 873 1000 Weight 102.3 kg - General General Appearance: Appears well In distress: None - PIH/Pre-Eclampsia Headache: Absent Epigastric Pain: No Visual Changes: No - Episiotomy/Laceration Site Condition: Well Approximated - Lochia Lochia Amount: Small 10-25 ml - Abdomen Description: Soft - Respiratory Respiratory Status: No respiratory distress - Extremities Upper extremity: Normal inspection Lower extremities: Normal inspection - Neurological Cognition: Normal Orientation: AAOx4 - Psychological Associated symptoms: Normal affect, Normal mood Objective-Diagnostic Laboratory: 05/25/19 08:08 05/24/19 05/24/19 05/24/19 09:55 13:02 13:02 WBC 10.9 H RBC 4.52 Hgb 13.4 Hct 39.6 MCV 88 MCH 29.6 MCHC 33.8 RDW 13.4 Plt Count 202 Seg Neutrophils % 78.8 H Urine Color YELLOW Urine Appearance SLIGHTLY-CLOUDY Urine pH 6.0 Ur Specific [place] 1.014 Urine Protein 30 H Urine Glucose (UA) NEGATIVE Urine Ketones NEGATIVE Urine Blood LARGE H Urine Nitrite NEGATIVE Ur Leukocyte Esterase MODERATE H Blood Type O POSITIVE Antibody Screen NEGATIVE 05/25/19 08:08 WBC 15.5 H RBC 4.06 Hgb 11.8 L Hct 35.3 L MCV 87 MCH 29.0 MCHC 33.3 RDW 13.5 Plt Count 202 Seg Neutrophils % Urine Color Urine Appearance Urine pH Ur Specific [place] Urine Protein Urine Glucose (UA) Urine Ketones Urine Blood Urine Nitrite Ur Leukocyte Esterase Blood Type Antibody Screen Assessment and Plan(PN) - Assessment and Plan (1) Vaginal delivery Is this a current diagnosis for this admission?: Yes Plan: Routine pp care (2) Periurethral laceration, delivered, current hospitalization Is this a current diagnosis for this admission?: Yes Plan: continue to monitor for s/s of infection (3) Obstetric vaginal laceration Qualifiers: Perineal laceration presence: without perineal laceration Qualified Code(s): O71.4 - Obstetric high vaginal laceration alone Is this a current diagnosis for this admission?: Yes Plan: continue to monitor for s/s of infection - Time Spent with Patient Time with patient: Less than 15 minutes Medications reviewed and adjusted accordingly: Yes - Disposition Anticipated Discharge: Home Within: within 24 hours
[2019-05-26] MEDS: IBUPROFEN 800 MG TABLET PO SCH (06:14)
[2019-05-26] MEDS ORDERED: INFLUENZA QUAD (6MOS+) 2019-20 VAC 0.5 ML SYR IM ONE (08:00)
[2019-05-26 08:10] VITALS: BP 104/62
--- NOTE | 2019-05-26 09:23 | PDOC PROGRESS REPORT ---
Subjective-OB Progress Note for:: 05/26/19 Subjective: Doing well, no c/o, , packing to go home, baby in room Physical Exam (OB) Vital Signs: Temp Pulse Resp BP Pulse Ox 98.0 F 89 16 104/62 100 05/26/19 09:01 05/26/19 09:01 05/26/19 09:01 05/26/19 09:01 05/26/19 09:01 Intake & Output 05/25/19 05/26/19 05/27/19 06:59 06:59 06:59 Intake Total 873 1000 Balance 873 1000 Weight 102.3 kg - PIH/Pre-Eclampsia Headache: Absent Epigastric Pain: No Visual Changes: No - Lochia Lochia Amount: Scant < 10 ml Lochia Color: Rubra/Red - Abdomen Description: Soft Hernia Present: No Fundal Description: Firm, Midline Fundal Height: u/u - u/2 Objective-Diagnostic Laboratory: 05/25/19 08:08 Assessment and Plan(PN) - Assessment and Plan (1) Vaginal delivery Is this a current diagnosis for this admission?: Yes (2) Periurethral laceration, delivered, current hospitalization Is this a current diagnosis for this admission?: Yes (3) Obstetric vaginal laceration Qualifiers: Perineal laceration presence: without perineal laceration Qualified Code(s): O71.4 - Obstetric high vaginal laceration alone Is this a current diagnosis for this admission?: Yes - Time Spent with Patient Time with patient: Less than 15 minutes Medications reviewed and adjusted accordingly: Yes - Disposition Anticipated Discharge: Home Within: within 24 hours
--- NOTE | 2019-05-26 09:28 | PDOC DISCHARGE SUMMARY ---
Impression - Admit/DC Date/PCP Admission Date/Primary Care Provider: 05/24/19 11:58 KORIN COFFEY, DO Discharge Date: 05/26/19 - Discharge Diagnosis (1) Vaginal delivery Is this a current diagnosis for this admission?: Yes (2) Periurethral laceration, delivered, current hospitalization Is this a current diagnosis for this admission?: Yes (3) Obstetric vaginal laceration Is this a current diagnosis for this admission?: Yes - Additional Information Resuscitation Status: Full Code Discharge Diet: Regular Discharge Activity: Activity As Tolerated, No Lifting Over 10 Pounds, No tub bath Ref[facility]: [facility] [Provider Group] (Please call and schedule a 4 week follow up. ) Home Medications: Pnv No.95/Ferrous Fum/Folic AC [ Formula Tablet] 1 tab PO DAILY 02/13/19 HPI Gestational Age: 40.5 Reason(s) for Admission: Onset of Labor Procedures: NST, Ultrasound Procedure(s) Note: Pitocin augmentation Intrapartum Procedure(s): Spontaneous Vaginal Delivery Complication(s): Laceration-Vaginal, Laceration-Periurethral Laceration-Degree: 2nd Hospital Course Hospital Course: routine Results Laboratory Results: WBC 15.5 10^3/uL (4.0-10.5) H 05/25/19 08:08 RBC 4.06 10^6/uL (3.72-5.28) 05/25/19 08:08 Hgb 11.8 g/dL (12.0-15.5) L 05/25/19 08:08 Hct 35.3 % (36.0-47.0) L 05/25/19 08:08 MCV 87 fl (80-97) 05/25/19 08:08 MCH 29.0 pg (27.0-33.4) 05/25/19 08:08 MCHC 33.3 g/dL (32.0-36.0) 05/25/19 08:08 RDW 13.5 % (11.5-14.0) 05/25/19 08:08 Plt Count 202 10^3/uL (150-450) 05/25/19 08:08 Lymph % (Auto) 15.9 % (13-45) 05/24/19 13:02 [place] % (Auto) 4.1 % (3-13) 05/24/19 13:02 Eos % (Auto) 0.9 % (0-6) 05/24/19 13:02 Baso % (Auto) 0.3 % (0-2) 05/24/19 13:02 Absolute Neuts (auto) 8.6 10^3/uL (1.7-8.2) H 05/24/19 13:02 Absolute Lymphs (auto) 1.7 10^3/uL (0.5-4.7) 05/24/19 13:02 Absolute Monos (auto) 0.4 10^3/uL (0.1-1.4) 05/24/19 13:02 Absolute Eos (auto) 0.1 10^3/uL (0.0-0.6) 05/24/19 13:02 Absolute Basos (auto) 0.0 10^3/uL (0.0-0.2) 05/24/19 13:02 Seg Neutrophils % 78.8 % (42-78) H 05/24/19 13:02 Urine Color YELLOW 05/24/19 09:55 Urine Appearance SLIGHTLY-CLOUDY 05/24/19 09:55 Urine pH 6.0 (5.0-9.0) 05/24/19 09:55 Ur Specific [place] 1.014 05/24/19 09:55 Urine Protein 30 mg/dL (NEGATIVE) H 05/24/19 09:55 Urine Glucose (UA) NEGATIVE mg/dL (NEGATIVE) 05/24/19 09:55 Urine Ketones NEGATIVE mg/dL (NEGATIVE) 05/24/19 09:55 Urine Blood LARGE (NEGATIVE) H 05/24/19 09:55 Urine Nitrite NEGATIVE (NEGATIVE) 05/24/19 09:55 Urine Bilirubin NEGATIVE (NEGATIVE) 05/24/19 09:55 Urine Urobilinogen NEGATIVE mg/dL (<2.0) 05/24/19 09:55 Ur Leukocyte Esterase MODERATE (NEGATIVE) H 05/24/19 09:55 Urine Ascorbic Acid NEGATIVE (NEGATIVE) 05/24/19 09:55 Urine Opiates Screen NEGATIVE 05/24/19 09:55 Urine Methadone Screen NEGATIVE 05/24/19 09:55 Ur Barbiturates Screen NEGATIVE 05/24/19 09:55 Ur Phencyclidine Scrn NEGATIVE 05/24/19 09:55 Ur Amphetamines Screen NEGATIVE 05/24/19 09:55 U Benzodiazepines Scrn NEGATIVE 05/24/19 09:55 Urine Cocaine Screen NEGATIVE 05/24/19 09:55 U Marijuana (THC) Screen NEGATIVE 05/24/19 09:55 RPR NONREACTIVE (NONREACTIVE) 05/24/19 13:02 Blood Type O POSITIVE 05/24/19 13:02 Antibody Screen NEGATIVE 05/24/19 13:02 Plan Health Concerns: none, resume PNV's Plan of Treatment: routine Goals: baby home with pt Time Spent: Less than 30 Minutes
[2019-05-26] MEDS: SENNOSIDES/DOCUSATE 8.6-50 MG 1 EACH TABLET PO SCH (09:33)
[2019-05-26] MEDS: PRENATAL VITAMIN W DHA CAPSULE PO SCH (09:33)
[2019-05-26] MEDS: FERROUS SULFATE 325 MG TABLET PO SCH (09:33)
[2019-05-26] MEDS: DOCUSATE SODIUM 100 MG CAPSULE PO SCH (09:33)
== END 2019-05-26 11:58 | disposition home or self-care (01) | DRG 807 ==
LOC: LC 10:00 → LR 11:58 → 2S 22:03
PROVIDERS: ADMIT Obstetrics & Gynecology; ATTEND Obstetrics & Gynecology
PROC: 10E0XZZ Delivery of Products of Conception, External Approach (ICD-10-PCS; principal; 2019-05-24)
PROC: 0UQMXZZ Repair Vulva, External Approach (ICD-10-PCS; 2019-05-24)
PROC: 3E02340 Introduction of Influenza Vaccine into Muscle, Percutaneous Approach (ICD-10-PCS; 2019-05-26)
DX: O48.0 Post-term pregnancy (principal); Z37.0 Single live birth; O69.1XX0 Labor and delivery complicated by cord around neck, with compression, not applicable or unspecified; O71.82 Other specified trauma to perineum and vulva; Z3A.40 40 weeks gestation of pregnancy; Z23 Encounter for immunization
CPT/HCPCS: 36415; 59025; 80307; 81005; 85025; 85027; 86592; 86850; 86900; 86901; 90686; 90715; J2300; J2590; J3010; J3490

== ENCOUNTER 2020-07-23 16:06 | Emergency (ER) | payer SELFPAY ==
--- NOTE | 2020-07-23 17:14 | ER Document Report ---
ED Medical Screen (RME) - General Chief Complaint: Abdominal Pain Stated Complaint: NAUSEA Time Seen by Provider: 07/23/20 17:05 TRAVEL OUTSIDE OF THE [place] IN LAST 30 DAYS: No - HPI Notes: Patient is a 25-year-old female who is 4 weeks and presents with abdominal cramping. Patient reports nausea and vomiting but denies vaginal bleeding, vaginal discharge, chest pain, shortness of breath. Last menstrual period was 06/24/2020. G2, P1. She has not seen OB for this yet. - Related Data Allergies/Adverse Reactions: No Known Allergies Allergy (Verified 07/23/20 17:10) Home Medications: Past Medical History - Social History Frequency of alcohol use: None Drug Abuse: Marijuana Pulmonary Medical History: Denies: Hx Asthma Neurological Medical History: Reports: Hx Migraine Renal/ Medical History: Denies: Hx Peritoneal Dialysis GI Medical History: Denies: Hx Gastritis, Hx Gastroesophageal Reflux Disease Musculoskeltal Medical History: Denies Hx Arthritis, Denies Hx Fibromyalgia, Denies Hx Muscular Dystrophy, Denies Hx Musculoskeletal Trauma Psychiatric Medical History: Denies: Hx Anxiety Past Surgical History: Reports: Hx Oral Surgery - wisdom teeth removed - Immunizations Immunizations up to date: Yes Hx Diphtheria, Pertussis, Tetanus Vaccination: Yes - 2011 Physical Exam - Vital signs Vitals: Temp Pulse Resp BP Pulse Ox 98.5 F 89 20 130/80 H 98 07/23/20 16:12 07/23/20 16:12 07/23/20 16:12 07/23/20 16:12 07/23/20 16:12 - Abdominal Distension: No distension Tenderness: Nontender Course - Re-evaluation Re-evalutation: I have greeted and performed a rapid initial assessment of this patient. A comprehensive ED assessment and evaluation of the patient, analysis of test results and completion of medical decision making process will be conducted by an additional ED providers. - Vital Signs Vital signs: Temp Pulse Resp BP Pulse Ox 98.5 F 89 20 130/80 H 98 07/23/20 16:12 07/23/20 16:12 07/23/20 16:12 07/23/20 16:12 07/23/20 16:12
[2020-07-23 17:35] LABS: ABSOLUTE BASOPHILS # (AUTO) 0.1 10^3/uL (0.0-0.2); ABSOLUTE EOSINOPHILS # (AUTO) 0.3 10^3/uL (0.0-0.6); ABSOLUTE LYMPHOCYTES (AUTO) 3.2 10^3/uL (0.5-4.7); ABSOLUTE MONOCYTES (AUTO) 0.7 10^3/uL (0.1-1.4); ABSOLUTE NEUT (AUTO) 5.2 10^3/uL (1.7-8.2); BASOPHILS % (AUTO) 0.9 % (0-2); EOSINOPHILS % (AUTO) 3.3 % (0-6); HEMATOCRIT 40.9 % (36.0-47.0); HEMOGLOBIN 14.4 g/dL (12.0-15.5); LYMPHOCYTES % (AUTO) 34.1 % (13-45); MEAN CORPUSCULAR HEMOGLOBIN 29.9 pg (27.0-33.4); MEAN CORPUSCULAR HGB CONC 35.2 g/dL (32.0-36.0); MEAN CORPUSCULAR VOLUME 85 fl (80-97); PLATELET COUNT 282 10^3/uL (150-450); RED BLOOD COUNT 4.83 10^6/uL (3.72-5.28); RED CELL DISTRIBUTION WIDTH 13.5 % (11.5-14.0); SEGMENTED NEUTROPHILS % (AUTO) 54.7 % (42-78); TOTAL CELLS COUNTED % (AUTO) 100 %; WHITE BLOOD COUNT 9.4 10^3/uL (4.0-10.5)
[2020-07-23 17:48] LABS: AMORPHOUS SEDIMENT,URINE TRACE /HPF; APPEARANCE,URINE CLOUDY; BILIRUBIN,URINE NEGATIVE (NEGATIVE); COLOR,URINE YELLOW; GLUCOSE, URINE NEGATIVE (NEGATIVE); KETONES,URINE NEGATIVE (NEGATIVE); LEUKOCYTE ESTERASE,URINE TRACE (NEGATIVE); NITRITE,URINE NEGATIVE (NEGATIVE); PROTEIN,URINE NEGATIVE (NEGATIVE); URINE SPECIFIC GRAVITY 1.017; UROBILINOGEN,URINE NEGATIVE mg/dL (<2.0)
[2020-07-23 17:57] LABS: ALKALINE PHOSPHATASE 74 U/L (38-126); ANION GAP 6 (5-19); ASPARTATE AMINO TRANSFERASE 27 U/L (14-36); BILIRUBIN,DIRECT 0.1 mg/dL (0.0-0.4); BILIRUBIN,TOTAL 0.3 mg/dL (0.2-1.3); BLOOD UREA NITROGEN 10 mg/dL (7-20); CALCIUM 10.2 mg/dL (8.4-10.2); CARBON DIOXIDE 29 mmol/L (22-30); CHLORIDE 102 mmol/L (98-107); GLUCOSE 78 mg/dL (75-110); POTASSIUM 4.2 mmol/L (3.6-5.0); TOTAL PROTEIN 7.3 g/dL (6.3-8.2)
[2020-07-23] MEDS ORDERED: ACETAMINOPHEN 325 MG TABLET PO ONE (21:07)
--- NOTE | 2020-07-23 21:38 | RADIOLOGY REPORT (SQ) ---
EXAM DESCRIPTION: U/S OB TRANSVAG W/DOPPLER RadLex: US TRANSVAGINAL CLINICAL HISTORY: 25 years Female; abd pain preg location unknown; beta-hCG 2320 TECHNIQUE: Endovaginal pelvic ultrasound was performed. COMPARISON: None. FINDINGS: Uterus: 10 x 5 x 5 cm. There is a very small cystic structure in the endometrial canal, mean diameter 0.39 cm, 5 weeks 1 days if this is a gestational sac. No pole or yolk sac is identified. No hematoma. Cervix 3 cm, closed Right ovary: 3 x 2 x 2 cm. Normal vascular flow on Doppler. Left ovary: 4 x 2 x 2 cm. Anechoic with structure with internal echoes typical for corpus luteum cyst is noted. Normal vascular flow on Doppler. No free fluid. No adnexal masses. IMPRESSION: 1. Possible intrauterine gestational sac, 5 weeks 1 day. No pole or yolk sac is identified. 2. No adnexal masses 3. Consider two-week follow-up
--- NOTE | 2020-07-23 23:24 | ER Document Report ---
ED General - General Chief Complaint: Abdominal Pain Stated Complaint: NAUSEA Time Seen by Provider: 07/23/20 17:05 Notes: 25-year-old female G2, P1 LMP 06/24/2020 presents with 1 day of intermittent mild left pelvic pain without associated symptoms. Patient has been seen by OB but has not yet had an ultrasound confirming location of . Patient's previous was uncomplicated. Patient also endorses having had some mild nausea over the last few weeks but has not been vomiting and has been tolerating p.o. without difficulty. Patient denies any vaginal bleeding, vaginal discharge, urinary symptoms, fever, lightheadedness, weakness, fainting, ovarian cyst/STD hx, other STRIKER OUT history TRAVEL OUTSIDE OF THE [place] IN LAST 30 DAYS: No - Related Data Allergies/Adverse Reactions: No Known Allergies Allergy (Verified 07/23/20 17:10) Home Medications: Past Medical History - General Information source: Patient - Social History Smoking Status: Former Smoker Frequency of alcohol use: None Drug Abuse: Marijuana Family History: Reviewed & Not Pertinent Patient has homicidal ideation: No Pulmonary Medical History: Denies: Hx Asthma Neurological Medical History: Reports: Hx Migraine Renal/ Medical History: Denies: Hx Peritoneal Dialysis GI Medical History: Denies: Hx Gastritis, Hx Gastroesophageal Reflux Disease Musculoskeletal Medical History: Denies Hx Arthritis, Denies Hx Fibromyalgia, Denies Hx Muscular Dystrophy, Denies Hx Musculoskeletal Trauma Psychiatric Medical History: Denies: Hx Anxiety Past Surgical History: Reports: Hx Oral Surgery - wisdom teeth removed - Immunizations Immunizations up to date: Yes Hx Diphtheria, Pertussis, Tetanus Vaccination: Yes - 2011 Review of Systems - Review of Systems Notes: REVIEW OF SYSTEMS: CONSTITUTIONAL : Denies fever, chills, or sweats. EENT: Denies recent cold/sinus symptoms, denies throat pain CARDIOVASCULAR: Denies chest pain, CHELY RESPIRATORY: Denies cough, denies shortness of breath. GASTROINTESTINAL: Denies abdominal pain, +nausea -vomiting. GENITOURINARY: Denies difficulty urinating, painful urination. FEMALE GENITOURINARY: Denies abnormal vaginal bleeding, vaginal discharge. MUSCULOSKELETAL: Denies neck pain, back pain. SKIN: Denies rash or skin lesions. HEMATOLOGIC : Denies easy bruising or bleeding. LYMPHATIC: Denies swollen, enlarged glands. NEUROLOGICAL: Denies headache, denies change in gait. PSYCHIATRIC: Denies anxiety or stress or depression. Physical Exam - Vital signs Vitals: Temp Pulse Resp BP Pulse Ox 98.5 F 89 20 130/80 H 98 07/23/20 16:12 07/23/20 16:12 07/23/20 16:12 07/23/20 16:12 07/23/20 16:12 - Notes Notes: PHYSICAL EXAMINATION: GENERAL: Well-appearing, well-nourished and in no acute distress. HEAD: Atraumatic, normocephalic. EYES: Pupils equal round and appropriate constriction, sclera anicteric, conjunctiva are normal. ENT: nares patent, moist mucous membranes. NECK: Normal range of motion, supple without lymphadenopathy LUNGS: Breath sounds clear to auscultation bilaterally and equal. No wheezes rales or rhonchi. HEART: Regular rate and rhythm without murmurs ABDOMEN: Soft, nontender, no guarding, no masses, no CVAT. Mild left pelvic discomfort with deep palpation without any masses, rebound, or guarding. Patient declined pelvic exam. EXTREMITIES: Normal range of motion, no pitting or edema. No cyanosis. NEUROLOGICAL: Awake, alert, conversing appropriately, moves all extremities spontaneously. PSYCH: Normal mood, normal affect. SKIN: Warm, Dry, normal turgor, no rashes or lesions noted. Course - Re-evaluation Re-evalutation: 07/23/20 23:25 Patient with of unknown location and a highly desired with left pelvic pain. Patient's pelvic pain is mild but patient was understandably concerned prompting ED visit but pain is well controlled and ultrasound findings are equivocal. Unable to definitively confirm IUP and there is a cyst in the left ovary that could be an early ectopic but given that is desired this is appropriate for close follow-up with 48-hour beta and likely repeat ultrasound. I spoke to patient at length about ectopic and that it was a potentially deadly condition and all of the signs and symptoms that should prompt her to come back to the emergency room. Patient was in agreement and felt comfortable with this plan and denied having any other questions or concerns. I stressed that if she is unable to follow-up with OB then she should come back to the emergency department. Patient is ready for discharge with close outpatient or ED follow-up. Patient is on prenatals prescribed by OB. Patient declined pelvic exam which is reasonable as it is unlikely to add meaningful clinical information as patient is able to reliably report symptoms. - Vital Signs Vital signs: Temp Pulse Resp BP Pulse Ox 98.5 F 89 20 130/80 H 98 07/23/20 16:12 07/23/20 16:12 07/23/20 16:12 07/23/20 16:12 07/23/20 16:12 - Laboratory Results Result Diagrams: 07/23/20 17:17 07/23/20 17:17 Laboratory Results Interpreted: 07/23/20 07/23/20 17:17 17:17 Beta HCG, Quant 2320.80 H Ur Leukocyte Esterase TRACE H Critical Laboratory Results Reviewed: No Critical Results - Radiology Results Critical Radiology Results Reviewed: No Critical Results Discharge - Discharge Clinical Impression: of unknown anatomic location Pelvic pain affecting Qualifiers: Trimester: first trimester Qualified Code(s): O26.891 - Other specified related conditions, first trimester; R10.2 - Pelvic and perineal pain Disposition: HOME, SELF-CARE Additional Instructions: Pelvic Pain in Lower abdominal pain during can have many causes. We look for se rious causes such as appendicitis, tubal , miscarriage, placental separation, or urinary tract infection. Less serious causes of pain include corpus luteum cyst (ovarian cyst of ) or stretching of the pelvic tissues by the enlarging uterus. Sometimes the pain comes from the bowels. It is still possible that you have an ectopic which is a potentially deadly problem and it is extremely important that you follow-up as we discussed. Follow-up in your case management manager's office in 2 days without fail to have repeat examination and blood work and possibly ultrasound. If you are not able to follow-up with your OB in 2 days then return to the emergency department. If at any point you have any worsening pain, dizziness, lightheadedness, weakness, fainting, vaginal bleeding, or any other worsening of symptoms is extremely important that you return immediately to the emergency department.
[2020-07-24 00:03] VITALS: BP 137/81
== END 2020-07-24 00:04 | disposition home or self-care (01) ==
LOC: ER 16:06
DX: O34.81 Maternal care for other abnormalities of pelvic organs, first trimester (principal); N83.202 Unspecified ovarian cyst, left side; O26.891 Other specified pregnancy related conditions, first trimester; R10.2 Pelvic and perineal pain; R11.0 Nausea; O99.321 Drug use complicating pregnancy, first trimester; F12.10 Cannabis abuse, uncomplicated; Z87.891 Personal history of nicotine dependence; Z79.899 Other long term (current) drug therapy; Z3A.01 Less than 8 weeks gestation of pregnancy
CPT/HCPCS: 36415; 76817; 80053; 81001; 84702; 85025; 87086; 93976; 99284

== ENCOUNTER 2020-07-25 05:09 | Emergency (ER) | payer SELFPAY ==
[2020-07-25 06:17] LABS: ABSOLUTE BASOPHILS # (AUTO) 0.1 10^3/uL (0.0-0.2); ABSOLUTE EOSINOPHILS # (AUTO) 0.3 10^3/uL (0.0-0.6); ABSOLUTE LYMPHOCYTES (AUTO) 2.7 10^3/uL (0.5-4.7); ABSOLUTE MONOCYTES (AUTO) 0.7 10^3/uL (0.1-1.4); ABSOLUTE NEUT (AUTO) 4.8 10^3/uL (1.7-8.2); HEMATOCRIT 40.5 % (36.0-47.0); HEMOGLOBIN 13.8 g/dL (12.0-15.5); LYMPHOCYTES % (AUTO) 31.5 % (13-45); MEAN CORPUSCULAR HEMOGLOBIN 29.2 pg (27.0-33.4); MEAN CORPUSCULAR HGB CONC 34.1 g/dL (32.0-36.0); MEAN CORPUSCULAR VOLUME 86 fl (80-97); MONOCYTES % (AUTO) 8.2 % (3-13); PLATELET COUNT 277 10^3/uL (150-450); RED BLOOD COUNT 4.73 10^6/uL (3.72-5.28); RED CELL DISTRIBUTION WIDTH 13.4 % (11.5-14.0); SEGMENTED NEUTROPHILS % (AUTO) 56.3 % (42-78); TOTAL CELLS COUNTED % (AUTO) 100 %; WHITE BLOOD COUNT 8.5 10^3/uL (4.0-10.5)
--- NOTE | 2020-07-25 06:22 | ER Document Report ---
ED GI/ - General Chief Complaint: Abdominal Pain Stated Complaint: CRAMPING, 4WKS PREG Time Seen by Provider: 07/25/20 06:06 Notes: HPI: 25-year-old female -0-0-1 at around 4 to 5 weeks by last menstrual period who presents with some left lower quadrant pain starting 2 days ago. No vaginal bleeding. Nausea with 2 bouts of vomiting. No dysuria or diarrhea. No real aggravating relieving factors to this pain. ROS: See HPI All other review of systems reviewed and otherwise negative Reviewed vital signs and nursing note as charted by RN. PHYSICAL EXAM: CONSTITUTIONAL: Alert and oriented and responds appropriately to questions. Well-appearing; well-nourished HEAD: Normocephalic; atraumatic EYES: Sclera is not pale CARD: Regular rate and rhythm; no murmurs; symmetric distal pulses RESP: Normal chest excursion without splinting or tachypnea; breath sounds clear and equal bilaterally ABD/GI: Normal bowel sounds; non-distended; soft, no focal tenderness to palpation of all 4 quadrants of the abdomen including bilateral lower quadrants. No palpable masses present BACK: The back appears normal and is non-tender to palpation EXT: Normal ROM in all joints; no edema SKIN: No acute lesions noted NEURO: CN 2-12 intact; 5/5 bilateral upper and lower extremity strength with sensation intact to light touch PSYCH: The patient's mood and manner are appropriate. Grooming and personal hygiene are appropriate. TRAVEL OUTSIDE OF THE [place] IN LAST 30 DAYS: No - Related Data Allergies/Adverse Reactions: No Known Allergies Allergy (Verified 07/25/20 05:34) Home Medications: PRE-NATALS Past Medical History - Social History Smoking Status: Never Smoker Frequency of alcohol use: None Drug Abuse: None Family History: Reviewed & Not Pertinent Pulmonary Medical History: Denies: Hx Asthma Neurological Medical History: Reports: Hx Migraine Renal/ Medical History: Denies: Hx Peritoneal Dialysis GI Medical History: Denies: Hx Gastritis, Hx Gastroesophageal Reflux Disease Musculoskeletal Medical History: Denies Hx Arthritis, Denies Hx Fibromyalgia, Denies Hx Muscular Dystrophy, Denies Hx Musculoskeletal Trauma Psychiatric Medical History: Denies: Hx Anxiety Past Surgical History: Reports: Hx Oral Surgery - wisdom teeth removed - Immunizations Immunizations up to date: Yes Hx Diphtheria, Pertussis, Tetanus Vaccination: Yes - 2011 Physical Exam - Vital signs Vitals: Temp Pulse Resp BP Pulse Ox 98.2 F 84 16 121/68 98 07/25/20 05:26 07/25/20 05:26 07/25/20 05:26 07/25/20 05:26 07/25/20 05:26 Course - Re-evaluation Re-evalutation: 07/25/20 06:22 Given the history and physical in early with no vaginal bleeding with left lower quadrant pain we will obtain a quantitative hCG as well as a transvaginal ultrasound and a urine analysis. We would like to evaluate for the possibility of early IUP, topic , molar , or ovarian pathology. 07/25/20 07:23 Labs as recorded. Quantitative hCG and ultrasound as recorded. Vital signs are stable. Pelvic examination shows no obvious external or internal lesions. No cervical motion tenderness. Closed os with no blood in the vault. Patient has no signs or symptoms of a urinary tract infection currently. 21 white blood cells noted. Urine culture has been sent. We will hold on treatment at this moment. 07/25/20 07:34 Wet prep as recorded. Given the above history and physical examination with vital signs as recorded, the repeat exam showing no pain, patient will be discharged home with strict return precautions and follow-up with the [employer]. - Vital Signs Vital signs: Temp Pulse Resp BP Pulse Ox 98.2 F 84 16 121/68 98 07/25/20 05:26 07/25/20 05:26 07/25/20 05:26 07/25/20 05:26 07/25/20 05:26 - Laboratory Results Result Diagrams: 07/25/20 06:00 07/25/20 06:00 Laboratory Results Interpreted: 07/25/20 07/25/20 06:00 06:20 Sodium 136.6 L Beta HCG, Quant 4617.00 H Urine Urobilinogen 2.0 H Ur Leukocyte Esterase SMALL H Critical Laboratory Results Reviewed: No Critical Results - Radiology Results Critical Radiology Results Reviewed: No Critical Results Discharge - Discharge Clinical Impression: Abdominal cramping affecting Condition: Good Disposition: HOME, SELF-CARE Additional Instructions: Come back immediately for any increased pain, change in location or quality of pain, lightheadedness or dizziness, worsening nausea or vomiting, vaginal bleeding, fevers, or any other acute problems. Please follow-up with the primary care physician for reassessment as discussed.
[2020-07-25 06:34] LABS: APPEARANCE,URINE SLIGHTLY-CLOUDY; BILIRUBIN,URINE NEGATIVE (NEGATIVE); COLOR,URINE YELLOW; GLUCOSE, URINE NEGATIVE (NEGATIVE); KETONES,URINE NEGATIVE (NEGATIVE); LEUKOCYTE ESTERASE,URINE SMALL (NEGATIVE); NITRITE,URINE NEGATIVE (NEGATIVE); PROTEIN,URINE NEGATIVE (NEGATIVE); URINE SPECIFIC GRAVITY 1.025
[2020-07-25 06:37] LABS: ALKALINE PHOSPHATASE 72 U/L (38-126); ANION GAP 9 (5-19); ASPARTATE AMINO TRANSFERASE 30 U/L (14-36); BILIRUBIN,DIRECT 0.2 mg/dL (0.0-0.4); BILIRUBIN,TOTAL 0.5 mg/dL (0.2-1.3); BLOOD UREA NITROGEN 12 mg/dL (7-20); CALCIUM 9.5 mg/dL (8.4-10.2); CARBON DIOXIDE 23 mmol/L (22-30); CHLORIDE 105 mmol/L (98-107); GLUCOSE 100 mg/dL (75-110); POTASSIUM 4.5 mmol/L (3.6-5.0)
[2020-07-25 07:13] LABS: T.VAGINALIS (WET MOUNT) NO TRICHOMONAS SEEN; YEAST (WET MOUNT) NO YEAST SEEN
[2020-07-25 07:15] LABS: WBCS (WET MOUNT) 2+ WBCS SEEN
--- NOTE | 2020-07-25 07:18 | RADIOLOGY REPORT (SQ) ---
Ultrasound OB transvaginal on 07/25/2020 at 6:27 AM CLINICAL INDICATION: Severe pelvic pain, COMPARISON: 07/23/2020 FINDINGS: Multiple sonographic images are obtained throughout the pelvis by transvaginal approach, both transverse and sagittal images are obtained. Uterus measures approximately 9.6 x 5.2 x 6.5 cm. The right ovary measures approximately 3.5 x 1.8 x 1.8 cm. Flow is demonstrated in the right ovary. Left ovary measures approximately 3.8 x 2.3 x 2.2 cm. Flow is demonstrated in the left ovary. No adnexal mass or fluid collection is noted. There is a very small early intrauterine gestational sac with surrounding decidual reaction. Estimated gestational age by mean sac diameter is an approximate five week two day gestation. No yolk sac or pole is noted at this time. Gestation is too early for placental evaluation. Gestational sac shape appears unremarkable. Small calcified uterine fibroid is noted. IMPRESSION: Single early approximate five week two day intrauterine .
[2020-07-25 07:50] VITALS: BP 128/72
[2020-07-25 08:40] LABS: CHLAM PCR NOT DETECTED (NOT DETECT)
== END 2020-07-25 07:51 | disposition home or self-care (01) ==
LOC: ER 05:09
DX: O26.891 Other specified pregnancy related conditions, first trimester (principal); R10.32 Left lower quadrant pain; Z3A.01 Less than 8 weeks gestation of pregnancy
CPT/HCPCS: 36415; 76817; 80053; 81001; 84702; 85025; 86850; 86900; 86901; 87086; 87210; 87491; 87591; 99284